=== PATIENT | female | born 1955 ===

== ENCOUNTER 2024-12-28 09:39 | Outpatient (CLI) | payer MEDICARE, SELFPAY ==
--- NOTE | ~2024-12-28 | XR_ITS ---
EXAMINATION: CYSTOGRAM DATE: 12/28/2024 11:50 INDICATION: Chronic cystitis without hematuria TECHNIQUE: Initial quality assurance radiograph of the pelvis was performed. There was retrograde administration of Omnipaque 350 mixed with saline contrast into the bladder through a Wilson catheter. Fluoroscopic images of the abdomen and pelvis were obtained. The Wilson catheter was removed and additional fluoros copic images of the bladder and urethra were obtained during voiding. A post-void radiograph was also obtained. A total of 28 fluoroscopic images and 2 overhead radiographs were obtained. Fluoroscopy ex posure time was 2.4 minutes. Total DAP was 18.01 Gycm^2. FINDINGS: With filling of the bladder there was bilateral vesicoureteral reflux with contrast extending to the bilateral renal collecting systems. The urethra as unremarkable. There was no discernible residual po stvoid contrast. IMPRESSION: 1. Bilateral vesicoureteral reflux. Otherwise normal voiding cystourethrogram with normal urethra an d no significant post void bladder volume Reviewed, dictated and finalized at location A. IMPRESSION: 1. Bilateral vesicoureteral reflux. Otherwise normal voiding cystourethrogram with normal urethra and no significant post void bladder volume
--- OUTSIDE RECORDS SUMMARY | 2024-12-28 09:44 | XMS_ITS | Clinical Summary ---
Author Organization [facility] [address] [place] [address] Address [address] [place] [address] Care Team Providers Care Core Maker Helper Name Role Phone Camryn He MD Primary Care Provider [phone] Allergies Active Allergy Reactions Criticality Noted Date Comments Budesonide Unknown 12/14/2023 Medications multivitamin (MULTIPLE VITAMIN ORAL) Take 1 Tablet by mouth. Active losartan (COZAAR) 25 mg tablet Take 1 Tablet (25 mg) by mouth daily. 100 Tablet 3 4 Active metFORMIN (GLUCOPHAGE XR) 500 mg Extended Release 24 hour tablet Take 1 Tablet (500 mg) by mouth daily with breakfast. 100 Tablet 3 4 Active rosuvastatin (CRESTOR) 5 mg tablet Take 1 Tablet (5 mg) by mouth daily. 100 Tablet 3 4 Active cholecalciferol, vitamin D3, 1,000 unit Take 25 mcg by mouth daily. Active calcium carbonate-vitamin D3 (CALTRATE 600 + D) 600 mg-20 mcg (800 unit) Tablet Take 1 Tablet by mouth daily. 2 Active nitrofurantoin macrocrystaL (MACRODANTIN) 100 mg Capsule Take 1 Capsule (100 mg) by mouth 2 times daily. 16 Capsule 5 Active Active Problems Problem Noted Date Diagnosed Date History of recurrent UTI (urinary tract infectio n) 06/15/2022 Osteoporosis 02/23/2021 Closed wedge compression fra cture of T11 vertebra with routine healing 11/17/2020 Benign essential HTN 10/30/2019 Type 2 diabetes mellitus wit hout complication, without long-term current use of insulin 09/09/2018 Vitamin D deficiency 09/05/2018 Anemia 09/05/2018 Pure hyperglyceridemia 09/05/2018 Arthralgia of hand 04/14/2018 Encounters Date Type Department Care Team Description 12/01/2024 External Device Data [facility] ABSTRACTION Provider, Abstract 11/24/2024 External Device Data [facility] ABSTRACTION Provider, Abstract 11/24/2024 External Device Data [facility] ABSTRACTION Provider, Abstract 11/24/2024 External Device Data [facility] ABSTRACTION Provider, Abstract 11/20/2024 Abstract [facility] - [address] [place] [address] Camryn He MD 11/04/2024 External Device Data [facility] ABSTRACTION Provider, Abstract 11/03/2024 External Device Data [facility] ABSTRACTION Provider, Abstract 10/26/2024 Abstract [facility] - [address] [place] [address] Camryn He MD 10/16/2024 9:00 AM CDT Ancillary Procedure [facility] [address] [place] [phone] Kamran Balderas MD Facial weakness 10/09/2024 Abstract [facility] - [address] [place] [address] Camryn He MD from Last 3 Months Immunizations Immunization Administration Dates Next Due (Moderna Bivalent)(6 Mos Up) COVID-19 Vaccine - Emergency Use Authorization, MRNA(Pf) 50 Mcg/0.5 Ml Im Susp 03/02/2022 (SPIKEVAX) (12 YRS UP PRIMAR Y SERIES) COVID-19 VACCINE - MRNA-1273(PF) 100 MCG/0.5 ML IM SUSP 05/01/2021 Social History Tobacco Use Types Packs/Day Years Used Date Smoking Tobacco: Never Smokeless Tobacco: Never Tobacco Cessation:Counseling Given: No Alcohol Use Standard Drinks/Week Comments No 0 (1 standard drink = 0.6 oz pur e alcohol) Comments No Sex and Gender Information Value Date Recorded Sex Assigned at Not on file Legal Sex Female 3:14 PM CDT Gender Identity Not on file Sexual Orientation Not on file Last Filed Vital Signs Vital Sign Reading Time Taken Comments Blood Pressure 159/80 09/22/2024 9:19 AM CDT Pulse 78 09/22/2024 9:19 AM CDT Temperature 36.6 C (97.8 F) 09/22/2024 9:19 AM CDT Respiratory Rate 16 09/22/2024 9:19 AM CDT Oxygen Saturation 100% 09/22/2024 9:19 AM CDT Inhaled Oxygen Concentration - - Weight 57.2 kg (126 lb) 07/24/2024 3:20 PM THERAPEUTIC CASE MANAGER Height 152.4 cm (5') 01/15/2024 3:04 PM CDT Body Mass Index 24.61 01/15/2024 3:04 PM CDT Plan of Treatment Upcoming Encounters Date Type Department Care Team (Late st Contact Info) Description 01/22/2025 2:45 PM CDT Office Visit [facility] - [address] [facility] [address] [place] [address] Camryn He MD [address] [place] [address] 03/24/2025 8:00 AM CDT Appointment [facility] [address] [place] [address] [facility], Injection Room Infusion Health Maintenance Due Date Last Done Comments FIT/FOBT Q 1 YEAR (AUTO ORDER) 1972 DTAP/TDAP/TD VACCINES (1 - Tdap) 1973 PNEUMOCOCCAL VACCINE 50+ YEA RS (1 of 2 - PCV) 1973 COLORECTAL CANCER SCREENING (AUTO ORDER) 12/07/1999 COLORECTAL SCREENING 12/07/1999 FIT/FOBT Q 1 year 12/07/1999 Flex Sig/CT Colonography Q 5 years 12/07/1999 ZOSTER VACCINE (1 of 2) 2004 BREAST CANCER SCREENING 08/02/2023 08/02/19 23, 08/02/2022, 08/02/2022, Additional history exists COVID-19 Vaccine (2023-2 5 season) 2024 03/02/2022, 05/01/2021, 07/08/2020 Colorectal Cancer Screening 10/13/2024 FIT-DNA Q 3 years 10/13/2024 10/13/2021 FIT/ DNA Q 3 YEARS (AUTO ORDER) 10/13/2024 , 10/13/2021 DIABETES HBA1C Q 6 MONTHS 11/17/20242023, 01/15/2024, 07/22/2023, Additional history exists DIABETES ANNUAL RETINAL EXAM 01/06/2025, 12/05/2022, 11/21/2022, Additional history exists INFLUENZA VACCINE (#1) 2025 07/24/2024, 2023 DIABETES MICROALBUMIN ANNUAL SCREEN 05/19/2025 05/19/2024, 04/21/2022, 09/05/2019 DIABETES: A1C (Auto Order) 05/19/202505/19, 01/15/2024, 07/22/2023, Additional history exists LDL CHOLESTEROL ANNUAL 05/20/2025 , 03/26/2023, 09/05/2019, Additional history exists DIABETES ANNUAL FOOT EXAM 07/24/20252024, 01/15/2024, 07/22/2023, Additional history exists Traditional Medicare (ACO) A nnual Wellness Visit 07/25/2025 07/24/2024 Colorectal Cancer Screening (AUTO ORDER) 10/13/2026 FLEX SIG/CT COLONOGRAPHY Q 5 YEARS (AUTO ORDER) 10/13/2026 10/13/2021, 10/13/2021 OSTEOPOROSIS SCREENING 03/10/2029 4, 01/06/2021, 01/06/2021, Additional history exists RSV VACCINE (60+ or ) (1 - 1-dose 75+ series) 2029 Procedures Procedure Name Priority Date/Time Associated Diagnosis Comments MRI IAC W BRAIN MR W WO CONTRAST Routine 10/16/2024 9:43 AM CDT Facial weakness LIPID PANEL Routine 05/20/2024 8:21 AM THERAPEUTIC CASE MANAGER Type 2 diabetes mellitus without complication, without long-term current use of insulin (CMS/HCC) Pure hyperglyceridemia MICROALBUMIN/CREAT ININE RATIO, RANDOM UR Routine 05/19/2024 12:37 PM THERAPEUTIC CASE MANAGER Type 2 diabetes mellitus without complication, without long-term current use of insulin (CMS/HCC) Pure hyperglyceridemia HEMOGLOBIN A1C Routine 05/19/2024 12:33 PM THERAPEUTIC CASE MANAGER Type 2 diabetes mellitus without complication, without long-term current use of insulin (CMS/HCC) XR DEXA BONE DENSITY AXIAL 1 OR MORE SITES Routine 03/10/2024 9:39 AM CDT Osteoporosis, unspecified osteoporosis type, unspecified pathological fracture presence HM DIABETES EYE EXAM Routine 01/07/2024 1:14 PM CDT MAMMO 3D SHANTELLE SCREEN BILAT W OR WO CAD Routine 08/02/2022 COLON CANCER SCREEN, STOOL DNA Routine 10/13/2021 2:30 PM CDT Screening for colon cancer from Last 3 Months or Most Recently Relevant to Health Maintenance Results * MRI IAC WWO & MRI BRAIN WWO CONTRAST (10/16/2024 9:43 AM CDT) Anatomical Region Laterality Modality Magnetic Resonan ce 10/16/2024 9:48 AM CDT Impressions 10/16/2024 11:16 AM CDT Impression: 1. No mass lesions in the bilateral cerebellopontine angle cisterns or the internal auditory canals. 2. 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 Please correlate clinically if this could be a possible cause of right trigeminal neuralgia. 3. 11 x 8 mm meningioma in the left frontal region. Narrative 10/16/2024 11:16 AM CDT EXAM: MRI IAC WWO & MRI BRAIN WWO CONTRAST STUDY DATE: 10/16/2024 9:43 AM CLINICAL INDICATION: Right facial weakness COMPARISON: None CONTRAST: GADOPICLENOL 0.5 MMOL/ML INTRAVENOUS SOLUTION Given:5 mL PROCEDURE: Multiple MR images of the brain and the bilateral internal auditory canals are obtained prior to and after administration of intravenous contrast. FINDINGS: The ventricles and subarachnoid spaces are normal in size, position and configuration for patient's age. No evidence of obstructive hydrocephalus. No acute intracranial hemorrhage or abnormal extra-axial fluid collections. Diffusion weighted images demonstrate no abnormal restricted diffusion. No acute infarction. There are scattered subcentimeter foci of T2/FLAIR hyperintense signal in the periventricular, subcortical and deep white matter on the cerebral hemispheres with no significant mass effect, restricted diffusion or postcontrast enhancement and likely represent sequela of chronic small vessel ischemic gliosis in a patient this age. No mass lesions are seen in the cerebellopontine angle cisterns or the internal auditory canals bilaterally. There is no abnormal enhancement in the membranous labyrinth bilaterally. Post contrast images demonstrate no foci of abnormal enhancement in the brain parenchyma. The visualized seventh and eighth nerve complexes are unremarkable. The bilateral trigeminal nerves are normal in appearance. There is a branch of the right superior cerebellar artery which indents the right trigeminal nerve just distal to its entry in the right prepontine cistern (series 14, image 11). There is a 11 x 8 mm enhancing, extra-axial, dural based lesion in the left frontal region (series 16, image 72 and series 17, image 12). The visualized orbits are normal in appearance. There is bilateral ocular lens replacement. There is mild mucosal thickening of the bilateral ethmoid sinuses. The The paranasal sinuses and mastoids are clear. Flow-voids are seen in the bilateral distal vertebral arteries, the basilar artery and the bilateral petrous and cavernous internal carotid arteries, consistent with patency of these arteries. Procedure Note Andree Gallego MD - 10/16/2024 EXAM: MRI IAC WWO & MRI BRAIN WWO CONTRAST STUDY DATE: 10/16/2024 9:43 AM CLINICAL INDICATION: Right facial weakness COMPARISON: None CONTRAST: GADOPICLENOL 0.5 MMOL/ML INTRAVENOUS SOLUTION Given:5 mL PROCEDURE: Multiple MR images of the brain and the bilateral internal auditory canals are obtained prior to and after administration of intravenous contrast. FINDINGS: The ventricles and subarachnoid spaces are normal in size, position and configuration for patient's age. No evidence of obstructive hydrocephalus. No acute intracranial hemorrhage or abnormal extra-axial fluid collections. Diffusion weighted images demonstrate no abnormal restricted diffusion. No acute infarction. There are scattered subcentimeter foci of T2/FLAIR hyperintense signal in the periventricular, subcortical and deep white matter on the cerebral hemispheres with no significant mass effect, restricted diffusion or postcontrast enhancement and likely represent sequela of chronic small vessel ischemic gliosis in a patient this age. No mass lesions are seen in the cerebellopontine angle cisterns or the internal auditory canals bilaterally. There is no abnormal enhancement in the membranous labyrinth bilaterally. Post contrast images demonstrate no foci of abnormal enhancement in the brain parenchyma. The visualized seventh and eighth nerve complexes are unremarkable. The bilateral trigeminal nerves are normal in appearance. There is a branch of the right superior cerebellar artery which indents the right trigeminal nerve just distal to its entry in the right prepontine cistern (series 14, image 11). There is a 11 x 8 mm enhancing, extra-axial, dural based lesion in the left frontal region (series 16, image 72 and series 17, image 12). The visualized orbits are normal in appearance. There is bilateral ocular lens replacement. There is mild mucosal thickening of the bilateral ethmoid sinuses. The The paranasal sinuses and mastoids are clear. Flow-voids are seen in the bilateral distal vertebral arteries, the basilar artery and the bilateral petrous and cavernous internal carotid arteries, consistent with patency of these arteries. Impression: 1. No mass lesions in the bilateral cerebellopontine angle cisterns or the internal auditory canals. 2. 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 Please correlate clinically if this could be a possible cause of right trigeminal neuralgia. 3. 11 x 8 mm meningioma in the left frontal region. us Kamran Balderas MD MR ORDERABLES Final Result * (ABNORMAL) LIPID PANEL (05/20/2024 8:21 AM THERAPEUTIC CASE MANAGER) CHOLESTEROL 214(H) <200 mg/dL [facility] HDL 46(L) > OR = 50 mg/dL [facility] TRIGLYCERIDE 143 <150 mg/dL [facility] LDL CALCULATED 141(H) mg/dL (calc) [facility] Comment: Reference range: <100 Desirable range <100 mg/dL for primary prevention; <70 mg/dL for patients with CHD or diabetic patients with > or = 2 CHD risk factors. LDL-C is now calculated using the Isabel calculation, which is a validated novel method providing better accuracy than the Friedewald equation in the estimation of LDL-C. Jose ALEXANDER et al. BE. 2013;310(19): 0896-0202 (http://education.[employer]/faq/VDE482) CHOL/HDL RATIO 4.7 <5.0 (calc) [facility] NON-HDL CHOLESTEROL 168(H) <130 mg/dL (calc) [facility] Comment: For patients with diabetes plus 1 major ASCVD risk factor, treating to a non-HDL-C goal of <100 mg/dL (LDL-C of <70 mg/dL) is considered a therapeutic option. SPLIT 05/19/2024 FROM [id number] FASTING:YES FASTING: YES Test Performed at: [id number] [address] [place] [id number] Kostas Chandler MD Blood 05/20/2024 8:21 AM THERAPEUTIC CASE MANAGER 05/20/2024 8:22 AM THERAPEUTIC CASE MANAGER us Camryn He MD CHEMISTRY ORDERABLES Final Re sult [facility] [phone] [employer] [address] * (ABNORMAL) MICROALBUMIN/CREATININE RATIO, RANDOM UR (05/19/2024 12:37 PM THERAPEUTIC CASE MANAGER) Creatinine, Urine 23 20 - 275 mg/dL [facility] MICROALBUMIN, URINE 0.8 See Note: mg/dL [facility] Comment: Reference Range: Reference Range Not established MICROALBUMIN/CREAT RATIO, UR 35(H) <30 mg/g creat [facility] Comment: The ADA defines abnormalities in albumin excretion as follows: Albuminuria Category Result (mg/g creatinine) Normal to Mildly increased <30 Moderately increased 30-299 Severely increased > OR = 300 The ADA recommends that at least two of three specimens collected within a 3-6 month period be abnormal before considering a patient to be within a diagnostic category. Test Performed at: [facility] [id number] [address] Kostas Chandler MD Urine URINE SPECIMEN OBTAINED BY CLEAN CATCH PROCEDURE / Unknown 05/19/2024 12:37 PM THERAPEUTIC CASE MANAGER 05/19/2024 12:37 PM THERAPEUTIC CASE MANAGER Camryn He MD URINE ORDERABLES Final Result Performing Organization Address City/State/ZIP [facility] Phone Number [facility] [phone] [facility] [address] [address] [address] * (ABNORMAL) HEMOGLOBIN A1C (05/19/2024 12:33 PM THERAPEUTIC CASE MANAGER) HEMOGLOBIN A1C 7.5(H) <5.7 % of total Hgb [facility] Comment: For someone without known diabetes, a hemoglobin A1c value of 6.5% or greater indicates that they may have diabetes and this should be confirmed with a follow-up test. For someone with known diabetes, a value <7% indicates that their diabetes is well controlled and a value greater than or equal to 7% indicates suboptimal control. A1c targets should be individualized based on duration of diabetes, age, comorbid conditions, and other considerations. Currently, no consensus exists regarding use of hemoglobin A1c for diagnosis of diabetes for children. ESTIMATED AVERAGE GLUCOSE (MG/DL) 169 mg/dL [facility] ESTIMATED AVERAGE GLUCOSE (MMOL/L) 9.3 mmol/L [facility] Comment: FASTING:NO PATIENT REFUSED SOME TESTING; PATIENT ENCOURAGED TO RETURN. FASTING: NO Test Performed at: [facility] [id number] [place] [id number] Kostas Chandler Blood 05/19/2024 12:3 3 PM THERAPEUTIC CASE MANAGER 05/19/2024 12:36 PM THERAPEUTIC CASE MANAGER Camryn He MD CHEMISTRY ORDERABLES Final Re sult [facility] [phone] [facility] [address] [place] [address] * XR DEXA BONE DENSITY AXIAL 1 OR MORE SITES (03/10/2024 9:39 AM CDT) Anatomical Region Laterality Modality Computed Radiogr aphy 03/10/2024 9:39 AM CDT Narrative 03/10/2024 12:01 PM CDT SUMMARY DEXA REPORT DATE: 03/10/2024 9:39 AM INDICATION: Screening for osteoporosis FINDINGS: FRAX FRACTURE RISK ASSESSMENT: 10 Year Probability Of Fracture Major Osteoporotic:9.7 % Hip:1.7 % Risk factors: Cervical fracture. The lowest T score is -1.9, L1-L4, osteopenia Please refer to the full report available in [facility] under the PACS Images tab. If a faxed copy is needed, please call [phone]. DICTATION LOCATION: [facility] Procedure Note Zander De La Cruz MD - 03/10/2024 SUMMARY DEXA REPORT DATE: 03/10/2024 9:39 AM INDICATION: Screening for osteoporosis FINDINGS: FRAX FRACTURE RISK ASSESSMENT: 10 Year Probability Of Fracture Major Osteoporotic:9.7 % Hip:1.7 % Risk factors: Cervical fracture. The lowest T score is -1.9, L1-L4, osteopenia Please refer to the full report available in [facility] under the PACS Images tab. If a faxed copy is needed, please call [phone]. DICTATION LOCATION: [facility] us Camryn He MD DIAGNOSTIC IMAGING ORDERABLES Final Result * HM DIABETES EYE EXAM (01/07/2024 1:14 PM CDT) us Abstract Provider HEALTH MAINTENANCE Edited Resu lt - Final [facility] - [address] [place] [address] CLIA# [id number] [address] [place] [address], [address] [address] * MAMMO SCRN BILAT 3D SHANTELLE W OR WO CAD (08/02/2022) Anatomical Region Laterality Modality Breast Bilateral Mammography us Abstract Provider MAMMO ORDERABLES Edited Result - Final * COLON CANCER SCREEN, STOOL DNA (10/13/2021 2:30 PM CDT) COLOGUARD RESULT Negative Negative [facility] Comment: NEGATIVE TEST RESULT. A negative Cologuard result indicates a low likelihood that a colorectal cancer (CRC) or advanced adenoma (adenomatous polyps with more advanced pre-malignant features) is present. The chance that a person with a negative Cologuard test has a colorectal cancer is less than 1 in 1500 (negative predictive value >99.9%) or has an advanced adenoma is less than 5.3% (negative predictive value 94.7%). These data are based on a prospective cross-sectional study of 10,000 individuals at average risk for colorectal cancer who were screened with both Cologuard and colonoscopy. (Chay Narayan et al, N Engl J Med 2014;370(14):3620-9286) The normal value (reference range) for this assay is negative. COLOGUARD RE-SCREENING RECOMMENDATION: Periodic colorectal cancer screening is an important part of preventive healthcare for asymptomatic individuals at average risk for colorectal cancer. Following a negative Cologuard result, the [place] Cancer Society and U.S. Multi-Society Task Force screening guidelines recommend a Cologuard re-screening interval of 3 years. References: [place] Cancer Society Guideline for Colorectal Cancer Screening: https://www.cancer.org/cancer/ywklr-jhgjnt-kodypf/gtphztoxp-wjqittvxi-jgblzuy/ac s-rec ommendations.html.; Marco BABB, Dennis CR, Maiocl CornejoK, Colorectal Cancer Screening: Recommendations for Physicians and Patients from the U.S. Multi-Society Task Force on Colorectal Cancer Screening , Am J Gastroenterology 2017; 112:1912-0664. TEST DESCRIPTION: Composite algorithmic analysis of stool DNA-biomarkers with hemoglobin immunoassay. Quantitative values of individual biomarkers are not reportable and are not associated with individual biomarker result reference ranges. Cologuard is intended for colorectal cancer screening of adults of either sex, 45 years or older, who are at average-risk for colorectal cancer (CRC). Cologuard has been approved for use by the U.S. FDA. The performance of Cologuard was established in a cross sectional study of average-risk adults aged 50-84. Cologuard performance in patients ages 45 to 49 years was estimated by sub-group analysis of near-age groups. Colonoscopies performed for a positive result may find as the most clinically significant lesion: colorectal cancer [4.0%], advanced adenoma (including sessile serrated polyps greater than or equal to 1cm diameter) [20%] or non- advanced adenoma [31%]; or no colorectal neoplasia [45%]. These estimates are derived from a prospective cross-sectional screening study of 10,000 individuals at average risk for colorectal cancer who were screened with both Cologuard and colonoscopy. (Chay Del Real. et al, N Engl J Med 2014;370(14):4131-2933.) Cologuard may produce a false negative or false positive result (no colorectal cancer or precancerous polyp present at colonoscopy follow up). A negative Cologuard test result does not guarantee the absence of CRC or advanced adenoma (pre-cancer). The current Cologuard screening interval is every 3 years. ([place] [employer] Society and U.S. Multi-Society Task Force). Cologuard performance data in a 10,000 patient pivotal study using colonoscopy as the reference method can be accessed at the following location: www.[employer]/results. Additional description of the Cologuard test process, warnings and precautions can be found at www.MWIoguard.com. Stool STOOL SPECIMEN / Unknown 10/13/2021 2:30 PM CDT 10/14/2021 11:24 PM CDT us Camryn He MD BODY FLUIDS AND STOOLS Final Result [employer] [place] # [id number] [address] , [address] [place] [address] from Last 3 Months or Most Recently Relevant to Health Maintenance Insurance MEDICARE PART A AND B [facility] [id number] MEDICARE PART A AND B [facility] [id number] [place] [id number] Advance Directives For more information, please contact: [phone] Documents on File Type Date Recorded Patient Senior Instructional Designer Expl anation Authorization to Represent 04/05/2021 8:29 AM Authorization to Represent Care Teams Core Maker Helper Relationship Specialty Start Date End Date Camryn He MD [address] [address] PCP - General Internal Medicine 04/14/18
--- OUTSIDE RECORDS SUMMARY | 2024-12-28 09:44 | XMS_ITS | Referral Summary ---
Author Organization [facility] Address [address] [place] [address] Care Team Providers Care Portfolio Architect Name Role Phone Camryn He MD Primary Care Provider [phone] Encounters Date Type Department Care Team Description 12/10/2024 Telephone [facility] Otolaryngology [address], [address] [place] [address] Kamran Balderas MD 11/27/2024 8:50 AM CDT - 11/27/2024 11:59 PM CDT Hospital Encounter [facility] [address] [place] [address] Lesion of parotid gland Discharge Disposition: Discharge to home or self care 11/19/2024 Orders Only [facility] Otolaryngology [address], [address] [place] [address] Brandee Martinez CMA Lesion of parotid gland (Primary Dx) 11/17/2024 Telephone [facility] Otolaryngology [address], [address] [place] [address] Kamran Balderas MD 11/17/2024 10:42 AM CDT - 11/17/2024 11:59 PM CDT Hospital Encounter [facility] [address] [place] [id number] Discharge Disposition: Discharge to home or self care 11/12/2024 Documentation [facility] Otolaryngology [address], [address] [place] [address] Brandee Martinez CMA Telephone (MRI) 11/12/2024 Telephone [facility] Otol[facility]ology [address] [place] [id number] Angeles Hightower MS 10/06/2024 Orders Only [facility] Otolaryngology [facility] 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; 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 Allergies Active Allergy Reactions Criticality Noted Date Comments Budesonide Unknown 12/14/2023 Medications cholecalciferol 25 mcg (1,000 unit) tablet Take 1 tablet (1,000 Units total) by mouth daily Active denosumab (Prolia) 60 mg/mL syringe Inject 1 mL (60 mg total) under the skin every 3 (three) months Active losartan (COZAAR) 25 mg tablet Take 1 tablet (25 mg total) by mouth daily 3 Active metFORMIN XR (GLUCOPHAGE XR) 500 mg 24 hr tablet Take 1 tablet (500 mg total) by mouth daily 4 Active methenamine (HIPREX) 1 gram tablet Take 1 tablet (1,000 mg total) by mouth 2 (two) times a day Active Paxlovid tablets,dose pack tablets in a dose pack TAKE 2 NIRMATRELVIR TABLETS AND 1 RITONAVIR TABLET TOGETHER BY MOUTH TWICE DAILY FOR 5 DAYS 5 Active nitrofurantoin (MACRODANTIN) 100 mg capsule Take 1 capsule (100 mg total) by mouth 2 (two) times a day 5 Active rosuvastatin (CRESTOR) 5 mg tablet Take 1 tablet (5 mg total) by mouth daily 3 Active sulfamethoxazol e-trimethoprim (BACTRIM) 400-80 mg per tablet Take 1 tablet by mouth every 12 (twelve) hours 4 Active Active Problems Problem Noted Date Diagnosed Date Pyelonephritis 04/21/2022 Sepsis 04/21/2022 Recurrent UTI 07/27/2021 Midline cystocele 07/27/2021 Osteoporosis 02/23/2021 Closed wedge compression fra cture of T11 vertebra with routine healing 11/17/2020 Benign essential HTN 10/30/2019 Type 2 diabetes mellitus wit hout complication, without long-term current use of insulin 09/09/2018 Anemia 09/05/2018 Pure hyperglyceridemia 09/05/2018 Vitamin D deficiency 09/05/2018 Arthralgia of hand 04/14/2018 Joint pain 02/07/2013 Atrophy of vulva 04/03/2010 Lower urinary tract infectious disease 0 Overview (10/06/2024): IMO load Social History Tobacco Use Types Packs/Day Years Used Date Smoking Tobacco: Never Assessed Comments Unknown Sex and Gender Information Value Date Recorded Sex Assigned at Not on file Legal Sex Female 11:20 AM OIL EXPLORATION ENGINEER Gender Identity Not on file Sexual Orientation Not on file Last Filed Vital Signs Vital Sign Reading Time Taken Comments Blood Pressure - - Pulse - - Temperature - - Respiratory Rate - - Oxygen Saturation - - Inhaled Oxygen Concentration - - Weight 56.7 kg (125 lb) 07/26/2021 8:38 AM OIL EXPLORATION ENGINEER Height 152.4 cm (5') 07/26/2021 8:38 AM OIL EXPLORATION ENGINEER Body Mass Index 24.41 07/26/2021 8:38 AM OIL EXPLORATION ENGINEER Plan of Treatment Not on file Procedures Procedure Name Priority Date/Time Associated Diagnosis Comments CT SOFT TISSUE NECK W CONTRAST Schedule Routine, Read Routine (OP Routine) 11/27/2024 9:20 AM CDT Lesion of parotid gland NEURO MR OUTSIDE REFERENCE Routine 11/17/2024 10:42 AM CDT AUDBASE RESULTS 10/06/2024 11:01 AM CDT DEXA AXIAL SKELETON BONE DENSITY 1 OR MORE SITES Routine 06/18/2014 10:02 AM OIL EXPLORATION ENGINEER SCREENING MAMMOGRAM BILATERAL W ABDIEL Routine 06/18/2014 12:00 AM OIL EXPLORATION ENGINEER from Last 3 Months or Most Recently Relevant to Health Maintenance Results * CT Neck Soft Tissue W Contrast (11/27/2024 9:20 AM CDT) Anatomical Region Laterality Modality Head and Neck N/A Computed Tomogra phy 12/09/2024 3:16 PM CDT Narrative 12/09/2024 3:23 PM CDT EXAM DESCRIPTION: CT SOFT TISSUE NECK WITH CONTRAST REASON FOR STUDY: Unspecified site painless right deep neck mass of unspecified duration in a patient with history of right facial droop unspecified duration and etiology. No provided history of trauma. No provided past medical, to include cancer, history. No provided past surgical history. TECHNIQUE: Post IV contrast scanning from skull base through lung apices. Reconstructed MPR images reviewed. Automated exposure control was used as a dose optimization technique for this examination. Images saved to PACS. parts identification technician reports no localized finding to place study marker. CONTRAST TYPE/DOSE: 90 mL Optiray 350 injected via peripheral IV site without reported incident. COMPARISON: Relevant portions of MRI brain without and with contrast 10/16/2024 (images without report); DEXA scan 06/18/2014: Reported as low bone mass. FINDINGS: SOFT TISSUE: No CT evidence of discrete mass, fluid collection, edema, and/or acute inflammatory changes. ORAL CAVITY/FLOOR OF MOUTH, PHARYNX, LARYNX, HYPOPHARYNX: No acute abnormality. Widely patent airway. LYMPHADENOPATHY: No adenopathy. MAJOR SALIVARY GLANDS: Asymmetric profound atrophy of the left submandibular gland. Otherwise, no CT evidence of discrete mass, focal fluid collection, edema, and/or acute inflammatory changes. THYROID: Normal size. No nodules greater than 1 cm. VASCULATURE: No occlusion or stenosis. INTRACRANIAL/SKULL BASE/INCLUDED ORBITS: Limited intracranial evaluation. No gross evidence of acute intracranial process. No acute orbital abnormality. [place] ocular lenses replaced bilaterally. PARANASAL SINUSES: Right middle nasal turbinate lazaro bullosa with leftward bowing of the bony nasal septum and left-directed bony nasal septal spur contacting the adjoining nasal mucosa, a potential source of contact point headaches. Correlate with clinical context. Visualized paranasal sinuses clear. Mastoid air cells well-developed and well aerated, noting robust pneumatization of the petrous apices. CERVICAL SPINE: Constellation of straightening of the cervical lordosis, spondylosis, and degenerative disc disease of the cervical spine. LUNG APICES: No acute abnormality. OTHER: No other significant finding. IMPRESSION: No evidence of acute process on CT soft tissue neck with chronic findings as above. THIS IS AN ELECTRONICALLY VERIFIED FINAL REPORT 12/09/2024 3:23 PM - Electronically signed by Augie Christian M.D. ILANA T: Report ID: [id number] Reading Location: [place] [address] Procedure Note Augie Christian MD - 12/09/2024 EXAM DESCRIPTION: CT SOFT TISSUE NECK WITH CONTRAST REASON FOR STUDY: Unspecified site painless right deep neck mass of unspecified duration in a patient with history of right facial droop unspecified duration and etiology. No provided history of trauma. No provided past medical, to include cancer, history. No provided pastsurgical history. TECHNIQUE: Post IV contrast scanning from skull base through lung apices. Reconstructed MPR images reviewed. Automated exposure control was used asa dose optimization technique for this examination. Images saved to PACS.parts identification technician reports no localized finding to place study marker. CONTRAST TYPE/DOSE: 90 mL Optiray 350 injected via peripheral IV site without reported incident. COMPARISON: Relevant portions of MRI brain without and with contrast 10/16/2024 (images without report); DEXA scan 06/18/2014: Reported as lowbone mass. FINDINGS: SOFT TISSUE: No CT evidence of discrete mass, fluidcollection, edema, and/or acute inflammatory changes. ORAL CAVITY/FLOOR OF MOUTH, PHARYNX, LARYNX, HYPOPHARYNX: No acute abnormality. Widely patent airway. LYMPHADENOPATHY: No adenopathy. MAJOR SALIVARY GLANDS: Asymmetric profound atrophy of the leftsubmandibular gland. Otherwise, no CT evidence of discrete mass, focal fluidcollection, edema, and/or acute inflammatory changes. THYROID: Normal size. No nodules greater than 1 cm. VASCULATURE: No occlusion or stenosis. INTRACRANIAL/SKULL BASE/INCLUDED ORBITS: Limited intracranialevaluation. No gross evidence of acute intracranial process. No acute orbitalabnormality. [place] ocular lenses replaced bilaterally. PARANASAL SINUSES: Right middle nasal turbinate lazaro bullosa withleftward bowing of the bony nasal septum and left-directed bony nasal septal spur contacting the adjoining nasal mucosa, a potential source of contact point headaches. Correlate with clinical context. Visualized paranasal sinuses clear. Mastoid air cells well-developed and well aerated, noting robust pneumatization of the petrous apices. CERVICAL SPINE: Constellation of straightening of the cervical lordosis, spondylosis, and degenerative disc disease of the cervical spine. LUNG APICES: No acute abnormality. OTHER: No other significant finding. IMPRESSION: No evidence of acute process on CT soft tissue neck withchronic findings as above. THIS IS AN ELECTRONICALLY VERIFIED FINAL REPORT 12/09/2024 3:23 PM - Electronically signed by Augie Christian M.D. ILANA T: Report ID: [id number] Reading Location: [place] [address] us Kamran Balderas MD IMG CT PROCEDURES Final Res ult * Neuro MR Outside Reference (11/17/2024 10:42 AM CDT) Impressions [facility] - 11/17/2024 10:42 AM CDT These images are for Reference purposes only and have not been reviewed by [facility]. There will be no report generated by a [facility] Radiologist. Narrative [facility] - 11/17/2024 10:42 AM CDT EXAMINATION: Images For Reference Purposes Only Kamran Balderas MD IMG MRI PROCEDURES Final Re sult [facility] * AudBase Results (10/06/2024 11:01 AM CDT) us Provider Scanning AUDIOLOGY SERVICES ORDERABLES Final Result * Dexa Axial Skeleton Bone Density 1 or 2 Site (06/18/2014 10:02 AM OIL EXPLORATION ENGINEER) Anatomical Region Laterality Modality Body N/A Radiographic Emy ging 06/18/2014 10:0 2 AM OIL EXPLORATION ENGINEER Narrative 06/18/2014 10:12 AM OIL EXPLORATION ENGINEER Bone mineral density [facility] Clinical History: Postmenopausal. Osteopenia. Hormone replacement therapy. Boniva therapy. Follow-up. DXA BMD was done at [facility] on a [employer] CI. Precision testing at this site has resulted in a least significant change of: Lumbar spine 0.035 g/sq cm Hip 0.025 g/sq cm BMD L1-L4 is 0.784 g/sq cm corresponding to a T score of -2.4. BMD left femoral neck is 0.662 g/sq cm corresponding to a T score of -1.7. BMD total left hip is 0.786 g/sq cm corresponding to a T score of -1.3. COMPARISON: Comparison is made to the prior study of 11/08/2010. There has been a significant interval decrease in the bone mineral density of the lumbar spine since the prior study. The bone density at this site previously measured 0.832 g/sq cm. There has also been a significant interval decrease in the total bone mineral density at the left hip. The bone density at this site previously measured 0.814 g/sq cm. IMPRESSION: Low bone mass (osteopenia) which depending on the clinical circumstances may result in a moderate increased risk of fragility fracture. There have been significant decreases in the bone mineral density of the lumbar spine and the total bone mineral density of the left hip since October 2010. The bone density at the lumbar spine is now nearly diagnostic of osteoporosis. If followup is to be done, for technical reasons, it should be performed on this same machine. Radiologist: BRUNO BROWN, DANNI Pastrana Attending: COLIN KIMBALL M.D. Requesting: COLIN KIMBALL M.D. Requesting Requesting ID: [id number] Attending Attending ID: [id number] Completed Time: 06/18/2014 10:02 AM Dictated Time: 06/18/2014 10:07 AM Transcribed Time: 06/18/2014 10:12 AM Signed by: DANNI CARR MD on 06/18/2014 10:12 AM Report To 1 ID: Report To 1 Name: , Report To 1 FAX: Report To 2 ID: Report To 2 Name: , Report To 2 FAX: Report To 3 ID: Report To 3 Name: , Report To 3 FAX: NextGen Order #: Procedure Note Provider, MD Alfonso - 10/20/2016 Bone mineral density [facility] Clinical History: Postmenopausal. Osteopenia. Hormone replacement therapy. Boniva therapy. Follow-up. DXA BMD was done at [facility] on a [employer] CI. Precision testing at this site has resulted in a least significant change of: Lumbar spine 0.035 g/sq cm Hip 0.025 g/sq cm BMD L1-L4 is 0.784 g/sq cm corresponding to a T score of -2.4. BMD left femoral neck is 0.662 g/sq cm corresponding to a T score of -1.7. BMD total left hip is 0.786 g/sq cm corresponding to a T score of -1.3. COMPARISON: Comparison is made to the prior study of 11/08/2010. There has been a significant interval decrease in the bone mineral density of the lumbar spine since the prior study. The bone density at this site previously measured 0.832 g/sq cm. There has also been a significant interval decrease in the total bone mineral density at the left hip. The bone density at this site previously measured 0.814 g/sq cm. IMPRESSION: Low bone mass (osteopenia) which depending on the clinical circumstances may result in a moderate increased risk of fragility fracture. There have been significant decreases in the bone mineral density of the lumbar spine and the total bone mineral density of the left hip since October 2010. The bone density at the lumbar spine is now nearly diagnostic of osteoporosis. If followup is to be done, for technical reasons, it should be performed on this same machine. Radiologist: DANNI CARR MD Attending: COLIN KIMBALL M.D. Requesting: COLIN KIMBALL M.D. Requesting Requesting ID: [id number] Attending Attending ID: [id number] Completed Time: 06/18/2014 10:02 AM Dictated Time: 06/18/2014 10:07 AM Transcribed Time: 06/18/2014 10:12 AM Signed by: DANNI CARR MD on 06/18/2014 10:12 AM Report To 1 ID: Report To 1 Name: , Report To 1 FAX: Report To 2 ID: Report To 2 Name: , Report To 2 FAX: Report To 3 ID: Report To 3 Name: , Report To 3 FAX: NextGen Order #: us Historical Provider MD LÓPEZ DXA PROCEDURES Final Result * Screening Mammogram Bilateral W Abdiel (06/18/2014 12:00 AM OIL EXPLORATION ENGINEER) Anatomical Region Laterality Modality Breast Bilateral Mammography 06/18/2014 9:34 AM OIL EXPLORATION ENGINEER Narrative 06/21/2014 3:00 PM OIL EXPLORATION ENGINEER - SCREENING MAMM W ABDIEL BI BILATERAL DIGITAL SCREENING MAMMOGRAM 3D/2D WITH CAD: 06/18/2014 CLINICAL: Routine screening. Patient has no complaints. Comparison is made to exams dated: 11/08/2010 [facility] and 02/18/2003 [facility]. The tissue of both breasts is heterogeneously dense. This may lower the sensitivity of mammography. Current study was also evaluated with a Computer Aided Detection (CAD) system. There are benign scattered calcifications left breast. No significant masses, calcifications, or other findings are seen in either breast. There has been no significant interval change. IMPRESSION: BENIGN There is no mammographic evidence of malignancy. A 1 year screening mammogram is recommended. The patient will be contacted by letter. Ekaterina floyd/penrad:06/21/2014 13:19:40 letter sent: Normal Exam Mammogram BI-RADS: 2 Benign Radiologist: EKATERINA ORNELAS M.D. Attending: COLIN KIMBALL M.D. Requesting: COLIN KIMBALL M.D. Requesting Requesting ID: [id number] Attending Attending ID: [id number] Completed Time: 06/18/2014 09:34 AM Dictated Time: N/A Transcribed Time: 06/21/2014 3:00 PM Signed by: EKATERINA ORNELAS M.D. on 06/21/2014 3:00 PM Report To 1 ID: Report To 1 Name: , Report To 1 FAX: Report To 2 ID: Report To 2 Name: , Report To 2 FAX: Report To 3 ID: Report To 3 Name: , Report To 3 FAX: NextGen Order #: Procedure Note Provider, MD Alfonso - 10/20/2016 - SCREENING MAMM W ABDIEL BI BILATERAL DIGITAL SCREENING MAMMOGRAM 3D/2D WITH CAD: 06/18/2014 CLINICAL: Routine screening. Patient has no complaints. Comparison is made to exams dated: 11/08/2010 [facility] and 02/18/2003 [facility]. The tissue of both breasts is heterogeneously dense. This may lower the sensitivity of mammography. Current study was also evaluated with a Computer Aided Detection (CAD) system. There are benign scattered calcifications left breast. No significant masses, calcifications, or other findings are seen in either breast. There has been no significant interval change. IMPRESSION: BENIGN There is no mammographic evidence of malignancy. A 1 year screening mammogram is recommended. The patient will be contacted by letter. Ekaterina Ornelas M.D. [facility]/penrad:06/21/2014 13:19:40 letter sent: Normal Exam Mammogram BI-RADS: 2 Benign Radiologist: EKATERINA ORNELAS M.D. Attending: COLIN KIMBALL M.D. Requesting: COLIN KIMBALL M.D. Requesting Requesting ID: [id number] Attending Attending ID: [id number] Completed Time: 06/18/2014 09:34 AM Dictated Time: N/A Transcribed Time: 06/21/2014 3:00 PM Signed by: EKATERINA ORNELAS M.D. on 06/21/2014 3:00 PM Report To 1 ID: Report To 1 Name: , Report To 1 FAX: Report To 2 ID: Report To 2 Name: , Report To 2 FAX: Report To 3 ID: Report To 3 Name: , Report To 3 FAX: NextGen Order #: us Historical Provider MD LÓPEZ MAMMO PROCEDURES Fabby l Result from Last 3 Months or Most Recently Relevant to Health Maintenance Insurance MEDICARE [facility] MEDICARE [employer] Care Teams Portfolio Architect Relationship Specialty Start Date End Date Camryn He MD PCP - General 05/03/11
--- OUTSIDE RECORDS SUMMARY | 2024-12-28 09:45 | XMS_ITS | Clinical Summary ---
Author Organization [facility] Address [address] [place] [address] Care Team Providers Care Investigation Officer Name Role Phone Camryn He MD Primary Care Provider [phone] Allergies Active Allergy Reactions Criticality Noted Date [...] infectious disease 0 Overview (10/06/2024): IMO load Encounters Date Type Department Care Team Description 12/10/2024 Telephone [facility] Otolaryngology [address], [address] [place] [address] Kamran Balderas MD 11/27/2024 8:50 AM CDT - 11/27/2024 11:59 PM CDT Hospital Encounter [facility] [place] [address] [place] [address] Lesion of parotid gland Discharge Disposition: Discharge to home or self care 11/19/2024 Orders Only [facility] Otolaryngology [address], [address] [place] [address] Brandee Mratinez CMA Lesion of parotid gland (Primary Dx) 11/17/2024 10:42 AM CDT - 11/17/2024 11:59 PM CDT Hospital Encounter [facility] [address] [place] [address] Discharge Disposition: Discharge to home or self care 11/17/2024 Telephone [facility] Otolaryngology [address], [address] [place] [address] Kamran Balderas MD 11/12/2024 Documentation [facility] Otolaryngology [facility] 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; Becerril's palsy 10/06/2024 11:00 AM CDT Procedure visit [facility] Otolaryngology [address] [place] [address], [address] [place] [address] Abnormal auditory perception of right ear (Primary Dx) 10/06/2024 Orders Only [facility] Otolaryngology [address] [place] [address], [address] [place] [phone] Brandee Martinez CMA Facial weakness (Primary Dx) from Last 3 Months Social History Tobacco Use Types Packs/Day Years Used Date Smoking Tobacco: Never Assessed Comments Unknown Sex and Gender Information Value Date Recorded Sex Assigned at Not on file Legal Sex Female 11:20 AM ATTORNEY GENERAL Gender Identity Not on file Sexual Orientation Not on file Obstetrics History Last Filed Vital Signs Vital Sign Reading Time Taken Comments Blood Pressure - - Pulse - - Temperature - - Respiratory Rate - - Oxygen Saturation - - Inhaled Oxygen Concentration - - Weight 56.7 kg (125 lb) 07/26/2021 8:38 AM ATTORNEY GENERAL Height 152.4 cm (5') 07/26/2021 8:38 AM ATTORNEY GENERAL Body Mass Index 24.41 07/26/2021 8:38 AM ATTORNEY GENERAL Plan of Treatment Health Maintenance Due Date Last Done Comments Albumin Creatinine Ratio, Urine 1955 Colon Cancer Screening-Colonoscopy 1954 Depression Screening 1954 Fall Risk Assessment 1955 Hepatitis C Screening 1955 eGFR 1955 Dilated Eye Exam 1954 Foot Exam 1954 Lipid Panel 1954 DTaP/Tdap/Td Vaccine (1 - Tdap) 1965 Hepatitis B Screening 1972 Pneumococcal vaccine 65+ (1 of 2 - PCV) 1973 Zoster Vaccine (1 of 2) 2004 Well Visit 65+ 12/07/2019 Breast Cancer Screening-Mammogram 08/02/2023 08/02/2022, 08/02/2022, 11/07/2018, Additional history exists Covid-19 Vaccine (2023-2 5 season) 2024 03/02/2022, 05/01/2021, 07/08/2020 Hemoglobin A1C 11/17/2024 05/19/2024, 03/17, 03/25/2023, Additional history exists Influenza Vaccine (#1) 2025 Osteoporosis Screening-Bone Density Scan 03/10/2026 03/10/2024, 03/10/2024, 01/06/2021, Additional history exists Procedures Procedure Name Priority Date/Time Associated Diagnosis Comments CT SOFT TISSUE NECK W CONTRAST Schedule Routine, Read Routine (OP Routine) 11/27/2024 9:20 AM CDT Lesion of parotid gland NEURO MR OUTSIDE REFERENCE Routine 11/17/2024 10:42 AM CDT AUDBASE RESULTS 10/06/2024 11:01 AM CDT DEXA AXIAL SKELETON BONE DENSITY 1 OR MORE SITES Routine 06/18/2014 10:02 AM ATTORNEY GENERAL SCREENING MAMMOGRAM BILATERAL W ABDIEL Routine 06/18/2014 12:00 AM ATTORNEY GENERAL from Last 3 Months or Most Recently [...] for this examination. Images saved to PACS. domestic technician reports no localized finding to place [...] acute intracranial process. No acute orbital abnormality. [place] ocular lenses replaced bilaterally. PARANASAL SINUSES: Right [...] 3:23 PM - Electronically signed by Augie Rios.D. ILANA T: Report ID: [id number] Reading Location: [place] [address] Procedure Note Augie Christian MD - 12/09/2024 [...] technique for this examination. Images saved to PACS.domestic technician reports no localized finding to place [...] of acute intracranial process. No acute orbitalabnormality. [place] ocular lenses replaced bilaterally. PARANASAL SINUSES: Right [...] Augie Christian M.D. ILANA T: Report ID: [id number] Reading Location: [id number] Kamran Balderas MD IMG CT PROCEDURES Final Res ult * Neuro MR Outside Reference (11/17/2024 10:42 AM CDT) Impressions [facility] - 11/17/2024 10:42 AM CDT These images are for Reference purposes only and have not been reviewed by [facility] Radiology. There will be no report generated by a [facility] Radiologist. Narrative [facility] - 11/17/2024 10:42 AM CDT EXAMINATION: Images For Reference Purposes Only Kamran Balderas MD IMG MRI PROCEDURES Final Re sult [facility] * AudBase Results (10/06/2024 11:01 AM CDT) Provider Scanning AUDIOLOGY SERVICES ORDERABLES Final Result * Dexa Axial Skeleton Bone Density 1 or 2 Site (06/18/2014 10:02 AM ATTORNEY GENERAL) Anatomical Region Laterality Modality Body N/A Radiographic Emy ging 06/18/2014 10:0 2 AM ATTORNEY GENERAL Narrative 06/18/2014 10:12 AM ATTORNEY GENERAL Bone mineral density [facility] Clinical History: Postmenopausal. Osteopenia. Hormone replacement therapy. Boniva therapy. Follow-up. DXA BMD was done at [facility] on a Erenis CI. Precision testing at this site has [...] Requesting: COLIN KIMBALL M.D. Requesting Requesting ID: [id number] Attending Attending ID: [id number] Completed Time: 06/18/2014 10:02 AM Dictated Time: [...] MD Alfonso - 10/20/2016 Bone mineral density [facility] Clinical History: Postmenopausal. Osteopenia. Hormone replacement therapy. Boniva therapy. Follow-up. DXA BMD was done at [facility] on a HoloadFreeq Discovery CI. Precision testing at this site [...] Requesting: COLIN KIMBALL M.D. Requesting Requesting ID: [id number] Attending Attending ID: [id number] Completed Time: 06/18/2014 10:02 AM Dictated Time: [...] NextGen Order #: [id number] Historical Provider MD LPÓEZ DXA PROCEDURES Final Result * Screening Mammogram Bilateral W Abdiel (06/18/2014 12:00 AM ATTORNEY GENERAL) Anatomical Region Laterality Modality Breast Bilateral Mammography 06/18/2014 9:34 AM ATTORNEY GENERAL Narrative 06/21/2014 3:00 PM ATTORNEY GENERAL - SCREENING MAMM W ABDIEL BI BILATERAL DIGITAL SCREENING MAMMOGRAM 3D/2D WITH CAD: 06/18/2014 CLINICAL: Routine screening. Patient has no complaints. Comparison is made to exams dated: 11/08/2010 [facility] and 02/18/2003 [facility]. The tissue of both breasts is heterogeneously [...] patient will be contacted by letter. Ekaterina Castanon M.D. [facility]:06/21/2014 13:19:40 letter sent: Normal Exam Mammogram BI-RADS: 2 Benign Radiologist: EKATERINA CASTANON M.D. Attending: COLIN KIMBALL M.D. Requesting: COLIN KIMBALL M.D. Requesting Requesting ID: [id number] Attending Attending ID: [id number] Completed Time: 06/18/2014 09:34 AM Dictated Time: N/A Transcribed Time: 06/21/2014 3:00 PM Signed by: EKATERINA CASTANON M.D. on 06/21/2014 3:00 PM Report To [...] Comparison is made to exams dated: 11/08/2010 [facility] and 02/18/2003 [facility]. The tissue of both breasts is heterogeneously [...] patient will be contacted by letter. Ekaterina Castanon M.D. [facility]:06/21/2014 13:19:40 letter sent: Normal Exam Mammogram BI-RADS: 2 Benign Radiologist: EKATERINA CASTANON M.D. Attending: COLIN KIMBALL M.D. Requesting: COLIN KIMBALL M.D. Requesting Requesting ID: [id number] Attending Attending ID: [id number] Completed Time: 06/18/2014 09:34 AM Dictated Time: N/A Transcribed Time: 06/21/2014 3:00 PM Signed by: EKATERINA CASTANON M.D. on 06/21/2014 3:00 PM Report To [...] Recently Relevant to Health Maintenance Insurance MEDICARE [facility] MEDICARE [facility] Care Teams Investigation Officer Relationship Specialty Start Date End Date Camryn He MD PCP - General 05/03/11
--- OUTSIDE RECORDS SUMMARY | 2024-12-28 09:45 | XMS_ITS | Continuity of Care Document ---
Author Organization [facility] Address [address] [place] [phone] Phone Care Team Providers Care Security Installer Name Role Phone Tolu Hall MD Unavailable Unavailable Medications Medication Instructions Dosage Effective Dates (start - stop) Status Comments Sugar Allergy 180 mg tablet take 1 tablet by oral route every day 180 MG - Active fluticasone propionate 50 mcg/actuation nasal spray,suspension spray 2 spray by intranasal route every day in each nostril 100 MCG - Active desonide 0.05 % topical cream apply by topical route 2 times every day sparingly and rub gently into the affected area(s) 0.00 - Active Procedures Procedure Date New (Level 4) OFFICE/OUTPATIENT VISIT Ja Perc Test Advance Directives Directive Yes / No Effective Date File Name No Information Encounters Encounter Description Practice Location Reason(s) For Visit Diagnoses Date Provider Providers Copied on Encounter New (Level 4) OFFICE/OUTPAT IENT VISIT [facility], [address] [place] [address], [id number], tel:[phone] [facility] allergy symptoms (chief complaint) Perennial allergic rhinitisAtopic dermatitis 0 Isabel Motley. [address] [place] [address], [id number] , . tel:[phone] Referring Provider: Camryn He, [address], [place], [address]. tel:[phone] Family History Family Member Type Diagnosis Age At Onset Son Problem (finding) Allergies, environmenta l Payers Payer name Insurance type Covered libertarian ID Authoriza tinoemy(s) No Information Social History Type Description Quantity Date Captured Comments Alcohol Use Details Unknown Caffeine Use Details Unknown Tobacco Use Status Current non-smoker 20 Smoking Status Never smoker Non-Smoking Tobacco Use Details : No Details Available : No Details Available Sex Female Vital Signs Date / Time: Height Weight BMI Pulse Rate Blood Pressure Temperature Respiratory Rate Body Surface Area Head Circumference Head Circ. Percentile Wt./Josef. Percentile BMI percentile Pulse Ox Inhaled Ox 9:49 AM 60.00 in 56.699 kg (125.00 lbs) 24.4 1 kg/m eter (2) 82 /min 120/70 mm[Hg] 97.60 F 97 % Chief Complaint And Reason For Visit From encounter dated '06/22/2019 09:40'. allergy symptoms (chief complaint). Description: She describes that she has rashes. She suspects she is allergic to things--egg. If she eats a scrambled egg she thinks that causes problems. She has itching and rashes. She tolerated baked egg. If she wears a wool sweater she will get itchy. Sweaterscause itching, but not rash. She has suspected she is allergic to eggs for a few years. She might now eat a scrambled egg a couple of times a month. She is OK with that, but if she eats them daily she will get a rash. She will notice the rash the next day. She has seen Dermatology and has been given Desonide lotiion and cream (0.05%). She typically uses it for 4 or 5 days until it resolves. She also gets a rash in the groin. She used to use the cream, but no longer does on the advice of her daughter. Now she uses coconut oil in that area. She has used Sugar. That helps the itching. She lasttook Sugar a week ago. Currently she has a runny nose. This can happen over the winter.She has 2 dogs. They do not trigger symptoms. Cats trigger hives.She has had nosebleeds in the past year or two. This year she had it in the summer. It affects the right nares more than the left. She currently has a cold. Smell and taste are OK. Reason For Referral Reason For Referral No Information History Of Present Illness Encounter Date Complaint History Of Alber nt Illness allergy symptoms She describes t hat she has rashes. She suspects she is allergic to things--egg. If she eats a scrambled egg she thinks that causes problems. She has itching and rashes. She tolerated baked egg. If she wears a wool sweater she will get itchy. Sweaters cause itching, but not rash. She has suspected she is allergic to eggs for a few years. She might now eat a scrambled egg a couple of times a month. She is OK with that, but if she eats them daily she will get a rash. She will notice the rash the next day. She has seen Dermatology and has been given Desonide lotiion and cream (0.05%). She typically uses it for 4 or 5 days until it resolves. She also gets a rash in the groin. She used to use the cream, but no longer does on the advice of her daughter. Now she uses coconut oil in that area. She has used Sugar. That helps the itching. She last took Sugar a week ago. Currently she has a runny nose. This can happen over the winter.She has 2 dogs. They do not trigger symptoms. Cats trigger hives.She has had nosebleeds in the past year or two. This year she had it in the summer. It affects the right nares more than the left. She currently has a cold. Smell and taste are OK. Functional Status Date Functional Assessmen t No Information Instructions Date Instruction Additional Infor mation No Information Assessments Type Assessment Date assessment Perennial allergic rhinitis assessment Atopic dermatitis Patient Care Teams Name Effective Dates (start - stop) Status Members No Information
--- OUTSIDE RECORDS SUMMARY | 2024-12-28 09:45 | XMS_ITS | Clinical Summary ---
Author Organization [facility] Address [address] [place] [address] Care Team Providers Care Baggage Agent Supervisor Name Role Phone Camryn He MD Primary Care Provider [phone] Source Comments [facility],non-owned Affiliates and Associated Physician Practices is amultiple site organization consisting of ambulatory clinics and hospital sitesin [place], [place], [place] and [place]. This disclosure is being madepursuant to the Care Everywhere program and may not contain all information available regarding this patient. Last updated 18.[facility] Allergies No known active allergies Medications * Be aware that medications may not be up to date on this document. Alwaysverify current medications with the patient. Multiple Vitamins-Jewelry Sales Representative als (MULTIVITAMIN ADULTS 50+) TABS Take 1 tablet by mouth once daily Active calcium carbonate - vitamin D (Caltrate + D) 600-20 MG-MCG tablet Take 1 (one) tablet by mouth once daily 2 Active cranberry fruit 450 MG tablet Take 1 (one) tablet by mouth once daily Active rosuvastatin (Crestor) 5 MG tablet Take 1 (one) tablet by mouth as needed 3 Active losartan (Cozaar) 25 MG tablet Take 1 (one) tablet by mouth once daily 3 Active methenamine hippurate (Hiprex) 1 GM tablet Take 1 (one) tablet by mouth 2 times daily 60 tablet 5 3 Active denosumab (Prolia) 60 MG/ML SC injection Inject 1 mL subcutaneously Every 90 days Active vitamin D3 (Cholecalcifer ol) 25 MCG (1000 UNITS) tablet Take 1 (one) tablet by mouth once daily Active sulfamethoxazo le-trimethopri m (Bactrim; Septra) 400-80 MG tablet Take 1 (one) tablet by mouth every 12 hours 28 tablet 4 Active sulfamethoxazo le-trimethopri m (Bactrim; Septra) 400-80 MG tablet Take 1 (one) tablet by mouth every 12 hours 14 tablet 4 Active Active Problems Problem Noted Date Diagnosed Date Recurrent UTI 07/27/2021 Midline cystocele 07/27/2021 Type 2 diabetes mellitus wit hout complication, without long-term current use of insulin 09/09/2018 Anemia 09/05/2018 Pure hyperglyceridemia 09/05/2018 Vitamin D deficiency 09/05/2018 History of recurrent UTI (urinary tract infectio n) 11/21/2017 Joint pain 02/07/2013 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 PLS CALL TO ASSIST, THANK YOU.) from Last 3 Months Family History Medical History Relation Name Comments Diabetes Father Hypertension Father Diabetes Mother Stroke Mother Relation Name Status Comments Father Mother Social History Tobacco Use Types Packs/Day Years Used Date Smoking Tobacco: Never Passive Smoke Exposure: Never Smokeless Tobacco: Never Alcohol Use Standard Drinks/Week Comments No 0 (1 standard drink = 0.6 oz pur e alcohol) Comments No Sex and Gender Information Value Date Recorded Sex Assigned at Not on file Legal Sex Female 6:32 AM NUTRITION INTERN Gender Identity Not on file Sexual Orientation Not on file Last Filed Vital Signs Vital Sign Reading Time Taken Comments Blood Pressure 138/82 12/18/2023 9:56 AM CDT Pulse 96 08/17/2020 10:45 AM NUTRITION INTERN Temperature 36.6 C (97.9 F) 12/18/2023 9:56 AM CDT Respiratory Rate 16 08/11/2019 12:59 PM NUTRITION INTERN Oxygen Saturation 98% 08/11/2019 12:59 PM NUTRITION INTERN Inhaled Oxygen Concentration - - Weight 58.3 kg (128 lb 9.6 oz) 12/18/2023 9:56 A M CDT Height 152.4 cm (5') 12/18/2023 9:56 AM CDT Body Mass Index 25.12 12/18/2023 9:56 AM CDT Plan of Treatment Upcoming Encounters Date Type Department Care Team (Late st Contact Info) Description 01/19/2025 1:00 PM CDT Office Visit [facility] [address] [place] [address] Radha Castellanos MD [address] [place], [place] [id number] Health Maintenance Due Date Last Done Comments COLON MONITORING 1954 COLONOSCOPY - COLON CA SCREENING 1954 CT COLONOGRAPHY - COLON CA SCREENING 1954 FIT - COLON CA SCREENING 1954 FLEX SIG - COLON CA SCREENING 1955 MEDICARE AWV 12 MONTHS 1954 HEPATITIS C SCREENING 12/01/1972 DTAP/TDAP/TD VACCINES (1 - Tdap) 1973 PNEUMOCOCCAL VACCINE 50+ (1 of 2 - PCV) 1973 ZOSTER VACCINE (1 of 2) 2004 DIABETES RETINOPATHY SCREENING 08/05/2019 DIABETES-FOOT EXAM WITH MONOFILAMENT 08/05/2019 DIABETES-HGB A1C 01/20/2024 07/22/2023, 10/2021, 10/02/2021, Additional history exists COVID-19 VACCINE ( season) 2024 03/02/2022, 05/01/2021, 07/08/2020 DEPRESSION SCREENING 06/17/2024 DIABETES - URINE PROTEIN SCREENING 06/17/2024 07/26/2021 MAMMOGRAM 08/02/2024 08/02/2022, 07/18, 08/02/2022, Additional history exists COLOGUARD (AGES 45-75) - COLON CA SCREENING 10/13/2024 10/13/2021 Colorectal Cancer Screening 10/13/2024 INFLUENZA VACCINE (#1) 2025 DIABETES-SERUM CREATININE 09/22/20252024, 12/14/2023, 12/14/2023, Additional history exists Respiratory Syncytial Virus (RSV) Vaccine Pt: or over 60 yrs (1 - 1-dose 75+ series) 2029 BONE DENSITY TESTING Completed 03/10/2024, 01/06/2021, 01/06/2021, Additional history exists HEPATITIS B VACCINE Aged Out No longe r eligible based on patient's age to complete this topic HIB VACCINE Aged Out No longer eligi ble based on patient's age to complete this topic HPV VACCINE Aged Out No longer eligi ble based on patient's age to complete this topic MENINGOCOCCAL (Group B) VACCINE SHARED DECISION-MAKING Aged Out No longer eligible based on patient's age to complete this topic MENINGOCOCCAL GROUPS A/C/Y/W VACCINE Aged Out No longer eligible based on patient's age to complete this topic Procedures Procedure Name Priority Date/Time Associated Diagnosis Comments MAMMOGRAM Routine 08/02/2022 BASIC METABOLIC PANEL (CALCIUM TOTAL) AM Draw 02/08/2013 6:44 AM CDT from Last 3 Months or Most Recently Relevant to Health Maintenance Results * MAMMOGRAM (08/02/2022) Anatomical Region Laterality Modality Other us Historical Provider MD SCANNING ONLY Final Res ult * (ABNORMAL) BASIC METABOLIC PANEL (CALCIUM TOTAL) (02/08/2013 6:44 AM CDT) Glucose 122(H) 74 - 106 mg/dL 02/08/2013 7:33 AM CDT [facility] Sodium 139 136 - 145 mmol/L 02/08/2013 7:33 AM CDT [facility] Potassium 4.3 3.5 - 5.1 mmol/L 02/08/2013 7:33 AM CDT [facility] Chloride 105 98 - 107 mmol/L 02/08/2013 7:33 AM CDT [facility] CO2 22 22 - 31 mmol/L 02/08/2013 7:33 AM CDT [facility] Calcium 9.1 8.5 - 10.1 mg/dL 02/08/2013 7:33 AM CDT [facility] Anion Gap 12 5 - 15 mmol/L 02/08/2013 7:33 AM CDT [facility] BUN 10 7 - 21 mg/dL 02/08/2013 7:33 AM CDT [facility] Creatinine 0.45(L) 0.50 - 1.30 mg/dL 02/08/2013 7:33 AM CDT [facility] eGFR by MDRD >60 >60 ml/min/1.7 3m2 02/08/2013 7:33 AM CDT [facility] eGFR by MDRD >60 >60 ml/min/1.7 3m2 02/08/2013 7:33 AM CDT [facility] Blood BLOOD SPECIMEN / Unknown Lab Venipuncture / Unknown 02/08/2013 6:44 AM CDT 02/08/2013 7:15 AM CDT us Charmaine Rosales MD LAB - CHEMISTRY ORDERABLES nal Result [facility] [address] [place] [address] from Last 3 Months or Most Recently Relevant to Health Maintenance Additional Health Concerns Infection Onset Date Last Indicated ESBL GNR 02/09/2013 02/09/2013 Insurance MEDICARE MEDICARE Advance Directives * FULL RESUSCITATION (Latest Code Status on File) Date Activated Date Inactivated Comments 02/05/2013 11:24 PM 02/08/2013 3:32 PM Care Teams Baggage Agent Supervisor Relationship Specialty Start Date End Date Camryn He MD [address] [phone] PCP - General 03/15/10
== END 2024-12-28 09:40 | disposition home or self-care (01) ==
PROVIDERS: Visit Provider Urology
DX: N13.70 Vesicoureteral-reflux, unspecified (principal)
CPT/HCPCS: 51600; 74455